=== PATIENT | female | born 1950 | race Caucasian/White ===

== ENCOUNTER 2024-12-09 17:23 | Observation (INO) | payer OTHER, SELFPAY ==
[2024-12-09] VITALS (10 sets, daily range): BP systolic 134–162; BP diastolic 75–109
--- NOTE | 2024-12-09 13:54 | ED.GENMED ---
History of Present Illness
General
Chief Complaint: Back Pain
Time Seen by Provider: 12/09/24 13:46
History of Present Illness
History of Present Illness:
Patient is a 74-year-old woman presenting to the emergency department for worsening back pain. Patient states that a few years ago she had back surgery. In October of this past year she went to [place] and was found to have compression fracture.
She was admitted and ultimately discharged with a back brace. For the past 2 days the pain worsened. It is not midline but more towards her right flank. The pain does not radiate down her leg. It stays localized to the right lower back. No
urinary symptoms. No fevers chills. No numbness tingling. No weakness. She has been taking oxycodone without relief.
Phy Exam
Physical Exam
Physical Exam:
GENERAL: in no acute distress
HEENT: normocephalic, extraocular movements intact, moist oral mucosa
NECK: normal inspection
RESPIRATORY: no respiratory distress, clear to auscultation bilaterally
CARDIOVASCULAR: regular rate and rhythm
ABDOMEN/: soft, non-distended, non-tender to palpation, no rebound or guarding
Back: Right lower back tenderness to palpation, no midline tenderness
EXTREMITIES: non-tender, no edema/swelling
NEUROLOGIC: awake and alert, moves all extremities
SKIN: warm
Course
Orders/Labs/Results
Orders:
Orders
12/09/24 13:54
CT Abd/pelvis W Iv Cont Urgent
Comment:
Reason For Exam: r flank pain, known compression fx
Oxycodone/Acetaminophen [Percocet 5/325] 1 tablet PO NOW STA
12/09/24 14:02
Complete Blood Count/With Diff Urgent
Comprehensive Metabolic Panel Urgent
12/09/24 15:33
Urinalysis Reflex To Culture Urgent
Date Specimen was Collected: 12/09/24
Time Specimen was Collected: 15:05
Urine Microscopic Reflex Cult Urgent
Urine Culture Urgent
FANY Source: U
Specimen Description:
Date Specimen was Collected: 12/09/24
Time Specimen was Collected: 15:05
Abnormal Lab Results
12/09/24 12/09/24
14:02 15:33
RBC 5.73 H 10^6/uL
(4.20-5.40)
MCV 70.2 L fL
(81.0-99.0)
MCH 21.3 L pg
(27.0-31.0)
MCHC 30.3 L g/dL
(33.0-37.0)
RDW 21.2 H %
(11.5-14.5)
Lymphocytes % 20.0 L %
(20.5-51.1)
Potassium 5.2 H mmol/L
(3.5-5.1)
Carbon Dioxide 34 H mmol/L
(22-30)
Creatinine 0.5 L mg/dL
(0.6-1.0)
Glucose 111 H mg/dl
(70-99)
Leukocyte Esterase Rfl 3+ A
(Negative)
Urine WBC (Reflex) 70-80 A /HPF
(0-5)
Urine Bacteria (Reflex) Many A
(Negative)
12/09/24 14:02
12/09/24 14:02
Vital Signs
Initial and Last Documented VS:
Initial Vital Signs
Temp Pulse Resp BP Pulse Ox
98.1 F 100 16 134/75 97
12/09/24 13:38 12/09/24 13:38 12/09/24 13:38 12/09/24 13:38 12/09/24 13:38
Last Documented Vital Signs
Temp Pulse Resp BP Pulse Ox
98.1 F 96 18 138/76 91
12/09/24 13:38 12/09/24 14:45 12/09/24 14:45 12/09/24 16:00 12/09/24 16:26
MDM/Problems Addressed
Differential Diagnosis Includes:
patient is a 74-year-old woman presenting to the emergency department with worsening of her back pain. On arrival vitals unremarkable exam does show reproducible tenderness. .. Patient without any red flags such as acute intervention, fevers
chills, saddle anesthesia or weakness. Given the flank tenderness could be urine or kidney stone. Will check blood work urine and CT scan with contrast. WIll pain control.
*Critical Care Note
Total Time (30-74mins, 75-104mins- exclusive of procedures): Not Applicable
Update Note
Update Note:
CT T scan with T12 and L5 compression as well as mild L2 compression. Given that there is no prior to compare to I discussed with [facility] neurosurgery who do recall admitting her. He did look at her CT scan and stated the only new compression
fracture is a mild L2 one. I offered patient transfer to [facility] as her care is there however patient preferred to transfer her care to [place]. Given patient with significant pain especially with movement will admit for further pain control
PT OT. Discussed with hospitalist who excepted patient to their service
ED Attending Note
-
Portions of this chart may have been created with voice recognition software.� Occasional wrong word or��sound alike� substitutions may have occurred due to the inherent limitations of voice recognition software.
Discharge Plan
Departure
Patient Disposition: Admit
Date of Disposition: 12/09/24
Time of Disposition: 16:39
Presentation/result/management discussed w/ accepting MD/DO: Hospitalist
Discharge Problem:
Compression fracture
Referrals:
Presley Matamoros CRNP [Family Provider] -
Interventions
Interventions:
*Risk Screen - Suicide Last Done: 12/09/24 13:41
*General Assessment Last Done: 12/09/24 13:41
*Neglect/Abuse Screening Last Done: 12/09/24 13:41
*ED- Fall Risk Assessment Last Done: 12/09/24 13:41
*ED COVID-19 Vaccine History Last Done: 12/09/24 13:41
ED-Musculoskeletal Assessment Last Done: 12/09/24 13:41
Discharge Date and Time
Print Language: GREEK
[2024-12-09] MEDS: PERCOCET 5/325 1 TABLET PO (14:05)
[2024-12-09 14:10] LABS: % Basophils 0.7 % (0-2); % Eosinophils 1.2 % (0-6); % Immature Granulocytes 0.1 % (0-0.5); % Monocytes 7.7 % (1.7-9.3); % Neutrophils 70.3 % (42.2-75.2); Absolute Basophils 0.1 10^3/uL (0-0.2); Absolute Eosinophils 0.1 10^3/uL (0-0.7); Absolute Lymphocytes 1.4 10^3/uL (1.2-3.4); Absolute Monocytes 0.5 10^3/uL (0.1-0.6); Absolute Neutrophils 4.9 10^3/uL (1.4-6.5); Hematocrit 40.2 % (37.0-47.0); Hemoglobin 12.2 g/dL (12.0-16.0); Mean Corp Hgb Conc. 30.3 g/dL (33.0-37.0); Mean Corpuscular Hgb 21.3 pg (27.0-31.0); Mean Corpuscular Volume 70.2 fL (81.0-99.0); Mean Platelet Volume 9.9 fL (7.4-10.4); Nucleated Red Blood Cells % 0 %; Platelet Count 388 10^3/uL (130-400); Red Blood Cell Count 5.73 10^6/uL (4.20-5.40); Red Cell Dist. Width 21.2 % (11.5-14.5); White Blood Cell Count 6.9 10^3/uL (4.8-10.8)
[2024-12-09 14:23] LABS: ALT (SGPT) 14 U/L (0-35); AST (SGOT) 24 U/L (14-36); Albumin 4.3 g/dl (3.5-5.0); Alkaline Phosphatase 119 U/L (38-126); Blood Urea Nitrogen 12 mg/dl (7-17); Calcium 9.7 mg/dl (8.4-10.2); Carbon Dioxide 34 mmol/L (22-30); Chloride 102 mmol/L (98-107); Glucose 111 mg/dl (70-99); Potassium 5.2 mmol/L (3.5-5.1); Sodium 137 mmol/L (135-145); Total Bilirubin 0.6 mg/dl (0.2-1.3); Total Protein 7.4 g/dl (6.3-8.2); eGFR > 60.00
[2024-12-09 15:45] LABS: Urine Albumin Negative (Neg - Trace); Urine Bilirubin Negative (Negative); Urine Character Clear (Clear); Urine Color Yellow; Urine Glucose Negative (Negative); Urine Ketone Negative (Negative); Urine Leukocyte 3+ (Negative); Urine Nitrite Negative (Negative); Urine Occult Blood Negative (Negative); Urine Specific Gravity 1.005 (<1.030); Urine Urobilinogen Negative (Neg - 1+)
[2024-12-09 16:11] LABS: Urine Bacteria Many (Negative); Urine Red Blood Cell 0-2 /HPF (0-2); Urine Squamous Cell >30 /LPF (Few)
[2024-12-09 16:12] LABS: Urine White Cell 70-80 /HPF (0-5)
--- NOTE | 2024-12-09 16:52 | HPS.HSE ---
Addendum entered and electronically signed by Nick Mckay MD 12/10/24 08:02:
Allergies
Allergy/AdvReac Type Severity Reaction Status Date / Time
No Known Allergies Allergy Unverified 12/09/24 13:41
Original Note:
Family Physician
-
Family Physician: MELISSA Grace
Chief Complaint
-
back pain
History of Present Illness
74-year-old female past medical history of extensive back pain and surgical history is presenting from home with back pain. Patient states back pain which is on the right lower region. She states it is a sharp pain. Was taking Percocet 5 mg at
home which was not alleviating the pain. States usually in the past Percocet used to help completely take the pain away in addition to Advil. However in the last 2 days the pain was unbearable and decided come to the hospital. Denies any urinary
fecal incontinence. States some mild radiation to pain with activity. States of lumbar fusion surgery and compression fracture T12 and L5 in the past. No recent trauma or falls. States she is stationary due to work. Continues to smoke lipid
less than 1 pack a day for the past 40 to 50 years. Occasional alcohol intake. Denies any fevers or chills. Denies any nausea or vomiting. Denies any chest pain or shortness of breath. States some mild left lower extremity edema due to ankle
fracture and surgery.
Medical History
Past Medical History
Past Medical History: Reports Other
Additional Past Medical History:
T12 and L5 compression fracture
Tobacco abuse daily basis
Past Surgical History: Reports Other
Additional Past Surgical History:
Left hip replacement
Lumbar fusion
Left ankle fracture s/p surgery
Social History
Tobacco: Smoker (daily basis 40-50 years)
Alcohol: Occasional
Employment: Employed
Family History
Family History: Not pertinent
Allergies / Home Medications
Allergies reflects when Allergies were last updated in [employer].
Home Medications with original date entered in [employer]
Allergy/Medication List:
Medications on admission are unable to be verified or confirmed at this time.
Review of Systems
-
History Source: Patient
Constitutional: Reports No Symptoms
EENT: Reports No Symptoms
Respiratory: Reports No Symptoms
Cardiac: Reports No Symptoms
Abdomen/GI: Reports No Symptoms
: Denies Dysuria, Frequency, Incontinence, Difficulty Voiding or Urgency
Musculoskeletal: Reports See HPI
Skin: Reports No Symptoms
Neurological: Reports No Symptoms
Psych: Reports Calm
Physical Exam
Vital Signs
Vital Signs
Temp Pulse Resp BP Pulse Ox
98.1 F 96 18 138/76 91
12/09/24 13:38 12/09/24 14:45 12/09/24 14:45 12/09/24 16:00 12/09/24 16:26
Physical Exam
General: Well Developed, Well Nourished, Conversant and Obese
HEENT: NormoCephalic, Moist mucous membranes and Atraumatic
Respiratory: Clear
Cardiac: S1/S2 and Regular Rhythm; No Murmur or Rub
Breast: Deferred by me
GI: Soft, Non Tender, Non Distended and Normal Bowel Sounds; No Organomegaly
Rectal: Deferred by Provider
Musculoskeletal: No Clubbing, No Cyanosis, Edema, Left Lower Extremity, Edema, Right Lower Extremity and Other (TTP R lower back )
Skin: No Rash
Neuro: Awake, Alert, Oriented, AO x 3, No Motor Deficits and Nonfocal/grossly intact
Psych: Calm
Laboratory Results
-
12/09/24 14:02
12/09/24 14:02
Laboratory Results
Total Bilirubin 0.6 mg/dl (0.2-1.3) 12/09/24 14:02
AST 24 U/L (14-36) 12/09/24 14:02
ALT 14 U/L (0-35) 12/09/24 14:02
Alkaline Phosphatase 119 U/L (38-126) 12/09/24 14:02
Data Reviewed
-
CT Scan: Report Reviewed by me and Discussed with Patient
Lab Data: Labs Reviewed by me and Discussed with Patient
Impression/Plan
-
#Acute on chronic back pain likely secondary to suspected acute/subacute L2 compression fracture and chronic T12 and L5 compression fracture
#History of lumbar fusion/kyphoplasty
Start patient on standing Tylenol. Tramadol, oxycodone and morphine for pain control
Physical therapy evaluation morning
Ambulation with assistance
CT abdomen pelvis was noted
#Constipation
Start patient on Senokot, MiraLAX
If no results. With Dulcolax and additional bowel regimen
#Mild hyperkalemia
Lokelma x 1
Tobacco abuse on a daily basis
Offered nicotine patch which patient refused counseled on cessation
Small to moderate hiatal hernia
Continue to monitor
DVT prophylaxis Lovenox
Full code
[2024-12-09] MEDS: LOKELMA 10 GRAM PO (21:28)
[2024-12-09] MEDS: MORPHINE SULFATE 2 MG IV (21:29)
[2024-12-10] MEDS: MIRALAX PO (00:02)
[2024-12-10] MEDS: SENOKOT 8.6 MG PO ×2 (00:02→08:04)
[2024-12-10] MEDS: COLACE 100 MG PO ×3 (00:02→20:27)
[2024-12-10] MEDS: TYLENOL 1000 MG PO ×4 (00:02→21:59)
[2024-12-10] MEDS: ROXICODONE 10 MG PO (05:17)
[2024-12-10 07:46] LABS: Blood Urea Nitrogen 9 mg/dl (7-17); Calcium 9.1 mg/dl (8.4-10.2); Carbon Dioxide 32 mmol/L (22-30); Chloride 102 mmol/L (98-107); Estimated Creatinine Clearance 100 ml/min; Glucose 102 mg/dl (70-99); Sodium 137 mmol/L (135-145); eGFR > 60.00
[2024-12-10 07:57] LABS: Vitamin D, 25-OH*** 24.6 ng/mL (30-80)
[2024-12-10 08:00] VITALS: BP 160/107
[2024-12-10] MEDS: MIRALAX 17 GRAMS PO (08:03)
--- NOTE | 2024-12-10 09:42 | CM ---
Addendum entered by Rosendo Bourne 12/10/24 15:46:
[employer] [facility] admissions green end department supervisor stated they do not have a contract with [facility] and they cannot accept the pt.
Pt is aware, expressed her disappointed feelings and understood that company might change the name.
Pt expressed her unhappy feelings regarding going to a SNF and she preferred to return back home with [facility]. Pt requested to talk to PT again and by tomorrow she will make a final decision.
PT is aware to meet with the pt and per PT, pt stated she will looking for friends who can help her at home.
Addendum entered by Rosendorobin Bourne 12/10/24 14:23:
PT and OT evaluations noted - SNF level of care recommended.
Pt is aware, expressed her agreement and pt requested [facility] ([facility]).
A referral to [facility] made. Awaiting for determination.
D/C plan: [facility].
eulalia Brice follow with discharge plan updates as hospitalization progresses
Addendum entered by Rosendo Bourne 12/10/24 10:52:
OBS status reviewed. MARTINEZ letter signed, placed on chart, pt has a copy
Original Note:
CM following re: discharge planning.
Reviewed pt's chart, met with pt.
Pt is a 74 year old female, admitted with primary dx of cute on chronic back pain likely secondary to suspected acute/subacute L2 compression fracture and chronic T12 and L5 compression fracture.
Pt reports she lives alone in an apartment, 1st floor, 1 step to enter. Pt reports she has no family, has supportive friends and neighbors. Pt reports she ambulates with a walker at baseline, was at [facility] in the past, liked there very
much and per pt if she needs SNF level of care she will prefer [facility] (new name now [facility]). Pt reports she had [facility] and [facility] in the past and she will prefer [facility] if recommended.
PT and OT will evaluate the pt to determine a level of care at discharge.
PCP: Presley Matamoros
Pharmacy: [facility].
D/C plan: will depend on PT/OT evaluations and recommendations: Preferred [facility]F vs home with [facility].
CM will follow with discharge plan updates as hospitalization progresses
[2024-12-10] MEDS: DRISDOL (VITAMIN D2) 50000 UNITS PO (10:17)
[2024-12-10 11:13] VITALS: BP 141/84; PULSE 96; O2SAT 92
--- NOTE | 2024-12-10 11:28 | W.PN.HOSP.TC ---
Today's Communication/Plan
-
pain management
bowel regimen
rehab eval
Assessment / Plan
Assessment / Plan
General: Well Developed, Well Nourished, Conversant and Obese
HEENT: NormoCephalic, Moist mucous membranes and Atraumatic
Respiratory: Clear
Cardiac: S1/S2 and Regular Rhythm; No Murmur or Rub
Breast: Deferred by me
GI: Soft, Non Tender, Non Distended and Normal Bowel Sounds; No Organomegaly
Rectal: Deferred by Provider
Musculoskeletal: No Clubbing, No Cyanosis, Edema, Left Lower Extremity, Edema, Right Lower Extremity and Other (TTP R lower back )
Skin: No Rash
Neuro: Awake, Alert, Oriented, AO x 3, No Motor Deficits and Nonfocal/grossly intact
Psych: Calm
#Acute on chronic back pain likely secondary to suspected acute/subacute L2 compression fracture and chronic T12 and L5 compression fracture
#History of lumbar fusion/kyphoplasty
Start patient on standing Tylenol. Tramadol, oxycodone and morphine for pain control
Physical therapy and OT
Ambulation with assistance
CT abdomen pelvis was noted
Okay to continue w/back brace
#Constipation
Start patient on Senokot, MiraLAX
If no results. With Dulcolax and additional bowel regimen
#Mild hyperkalemia
resolved
#Vit D deficency
Start high dose po vit D supplements
recommended OP dexa scan in setting of multiple recent lumbar spine fracture
Tobacco abuse on a daily basis
Offered nicotine patch which patient refused counseled on cessation
Small to moderate hiatal hernia
Continue to monitor
DVT prophylaxis Lovenox
Full code
Anticipated Discharge: Within 24 hours
Subjective/Interval History
-
Date of Service: December 10, 2024
states of back pain upon getting up from bed
Objective Data
-
Labs:
Laboratory Results
12/10/24
06:15
Sodium 137
Potassium 4.0
Chloride 102
Carbon Dioxide 32 H
BUN 9
Creatinine 0.5 L
Glucose 102 H
Calcium 9.1
Vital Signs:
Vital Signs
Temp Pulse Resp BP Pulse Ox
98.2 F 98 18 160/107 90
12/10/24 08:00 12/10/24 08:00 12/10/24 08:00 12/10/24 08:00 12/10/24 08:00
I&O
12/09/24 12/10/24 12/11/24
06:59 06:59 06:59
Intake Total 240 / 240
Balance 240 / 240
[2024-12-10] MEDS: ROXICODONE 15 MG PO ×2 (12:29→23:30)
[2024-12-10 15:15] VITALS: BP 122/76
[2024-12-10] MEDS: LOVENOX 40 MG SC (17:46)
[2024-12-10] MEDS: ULTRAM 50 MG PO (20:27)
[2024-12-10] MEDS: SENOKOT PO (20:28)
[2024-12-10 23:00] VITALS: BP 133/80
[2024-12-11] MEDS: ROXICODONE 15 MG PO (05:19)
[2024-12-11 07:45] VITALS: BP 156/87
[2024-12-11] MEDS: COLACE 100 MG PO ×2 (09:26→20:38)
[2024-12-11] MEDS: MIRALAX PO (09:26)
[2024-12-11] MEDS: SENOKOT 8.6 MG PO ×2 (09:26→20:38)
[2024-12-11] MEDS: TYLENOL 1000 MG PO ×2 (09:26→15:52)
[2024-12-11] MEDS: MOTRIN 400 MG PO ×2 (09:28→21:27)
[2024-12-11] MEDS: ZOFRAN 4 MG PO (09:53)
--- NOTE | 2024-12-11 11:41 | W.PN.HOSP.TC ---
Today's Communication/Plan
-
pain control
oob w/precautions
Assessment / Plan
Assessment / Plan
General: Well Developed, Well Nourished, Conversant and Obese
HEENT: NormoCephalic, Moist mucous membranes and Atraumatic
Respiratory: Clear
Cardiac: S1/S2 and Regular Rhythm; No Murmur or Rub
Breast: Deferred by me
GI: Soft, Non Tender, Non Distended and Normal Bowel Sounds; No Organomegaly
Rectal: Deferred by Provider
Musculoskeletal: No Clubbing, No Cyanosis, Edema, Left Lower Extremity, Edema, Right Lower Extremity and Other (TTP R lower back )
Skin: No Rash
Neuro: Awake, Alert, Oriented, AO x 3, No Motor Deficits and Nonfocal/grossly intact
Psych: Calm
#Acute on chronic back pain likely secondary to suspected acute/subacute L2 compression fracture and chronic T12 and L5 compression fracture
#History of lumbar fusion/kyphoplasty
Start patient on standing Tylenol. oxycodone and morphine for breakthrough pain control
Physical therapy and OT recs SNF-Refusing it. wants to go home VNA
Ambulation with assistance
CT abdomen pelvis was noted
Okay to continue w/back brace
#Constipation
Start patient on Senokot, MiraLAX
If no results. With Dulcolax and additional bowel regimen
having bm
#Mild hyperkalemia
resolved
#Vit D deficiency
Start high dose po vit D supplements
recommended OP dexa scan in setting of multiple recent lumbar spine fracture
Tobacco abuse on a daily basis
Offered nicotine patch which patient refused counseled on cessation
Small to moderate hiatal hernia
Continue to monitor
DVT prophylaxis Lovenox
Full code
PT/OT
Anticipated Discharge: Within 24 hours
Subjective/Interval History
-
Date of Service: December 11, 2024
states of improvement in back pain
mildly nauseous earlier today
tolerating diet
Objective Data
-
Vital Signs:
Vital Signs
Temp Pulse Resp BP Pulse Ox
98.8 F 90 16 156/87 92
12/11/24 07:45 12/11/24 07:45 12/11/24 07:45 12/11/24 07:45 12/11/24 07:45
I&O
12/10/24 12/11/24 12/12/24
06:59 06:59 06:59
Intake Total 240 / 240 1819 / 1819
Balance 240 / 240 1819
--- NOTE | 2024-12-11 12:01 | CM ---
CM following re: discharge planning.
Reviewed pt's chart, met with pt.
Pt reports she made a final decision regarding discharge plan - home with [facility]. Pt stated her friend will help her at home. Pt reports she had [facility] and [facility] in the past and she preferred [facility].
A referral to [facility] made. CM will make a referral to [facility] when [facility] confirmed that pt is accepted for services.
Pt is requested w/c van transportation and pt is aware of fees.
Please fax discharge instructions to [facility] at [phone]
D/C plan: home with [facility] and friend support. Transportation: w/c van.
CM will follow to assist pt with discharge home with [facility] and friend support.
[2024-12-11 12:53] VITALS: BP 132/77; PULSE 105; O2SAT 89
[2024-12-11 14:25] VITALS: BP 118/71; BP 122/77; PULSE 101; PULSE 81; O2SAT 88
[2024-12-11 15:40] VITALS: BP 125/58
[2024-12-11] MEDS: LOVENOX 40 MG SC (17:55)
[2024-12-11] MEDS: PEPCID 20 MG PO (21:24)
[2024-12-11] MEDS: TYLENOL PO ×2 (21:24→21:26)
[2024-12-11 23:00] VITALS: BP 106/67
[2024-12-12] MEDS: MOTRIN 400 MG PO (07:10)
[2024-12-12] MEDS: SENOKOT 8.6 MG PO (07:10)
[2024-12-12] MEDS: COLACE 100 MG PO (07:11)
[2024-12-12] MEDS: TYLENOL PO (07:11)
[2024-12-12] MEDS: MIRALAX PO (07:12)
[2024-12-12 07:25] VITALS: BP 129/76
[2024-12-12] MEDS: ZOFRAN 4 MG IV (08:54)
[2024-12-12] MEDS: FLUSH (NSS) 1 FLUSH IV (08:55)
[2024-12-12] MEDS: STERILE WATER FOR INJECTION 10 ML IV (08:57)
[2024-12-12] MEDS: ROCEPHIN 1000 MG IV (08:57)
[2024-12-12] MEDS: ROXICODONE 10 MG PO (09:07)
[2024-12-12 10:12] VITALS: BP 125/69; BP 132/79; PULSE 108; PULSE 92; O2SAT 92
--- NOTE | 2024-12-12 10:38 | CM ---
Addendum entered by Rosendo Bourne 12/12/24 12:57:
Per Acute care cryogenic transport driver, pt is Fall risk and needs to get home on stretcher. Pt is aware, expressed her agreement and pt stated she has keys from her apartment.
PMNC completed and left with .
Per cryogenic transport driver, ambulance transport BLS scheduled for 13:30.
Original Note:
CM following re: discharge planning.
Reviewed pt's chart, met with pt.
According to MD pt is medically stable to be discharged today. Pt is aware, expressed her agreement and she stated her friend will help her at home as needed.
[facility] accepted the pt for [facility] services and [facility] confirmed that pt is approved for services with [facility].
Pt is requested w/c van transportation and pt is aware of fees.
[facility] to arrange w/c van. Transportation form left with .
Please fax discharge instructions to [facility] at [phone]
D/C plan: home with [facility] and friend support. Transportation: w/c van.
--- NOTE | 2024-12-12 10:49 | W.PN.HOSP.TC ---
Today's Communication/Plan
-
refusing snf-home vn
po abx on dc
pain control
Assessment / Plan
Assessment / Plan
General: Well Developed, Well Nourished, Conversant and Obese
HEENT: NormoCephalic, Moist mucous membranes and Atraumatic
Respiratory: Clear
Cardiac: S1/S2 and Regular Rhythm; No Murmur or Rub
Breast: Deferred by me
GI: Soft, Non Tender, Non Distended and Normal Bowel Sounds; No Organomegaly
Rectal: Deferred by Provider
Musculoskeletal: No Clubbing, No Cyanosis, Edema, Left Lower Extremity, Edema, Right Lower Extremity
Neuro: Awake, Alert, Oriented, AO x 3, No Motor Deficits and Nonfocal/grossly intact
Psych: Calm
#Acute on chronic back pain likely secondary to suspected acute/subacute L2 compression fracture and chronic T12 and L5 compression fracture
#History of lumbar fusion/kyphoplasty
Start patient on standing Tylenol. oxycodone and morphine for breakthrough pain control
Physical therapy and OT recs SNF-Refusing it. wants to go home VNA
Ambulation with assistance
CT abdomen pelvis was noted
Okay to continue w/back brace
OP f/u with her primary spine surgeon
#E.coli UTI
Rocephin while and po on dc.
#Constipation
Start patient on Senokot, MiraLAX
If no results. With Dulcolax and additional bowel regimen
having bm
#Mild hyperkalemia
resolved
#Vit D deficiency
Start high dose po vit D supplements
recommended OP dexa scan in setting of multiple recent lumbar spine fracture
Tobacco abuse on a daily basis
Offered nicotine patch which patient refused counseled on cessation
Small to moderate hiatal hernia
Continue to monitor
DVT prophylaxis Lovenox
Full code
More than 30 minutes spent in discharge including
Final examination of the patient
Summarizing hospital stay
Instructions for continuing care to all relevant caregivers
Preparation of discharge records, prescriptions, and referral forms
Total time spent (in minutes): 52
Anticipated Discharge: Today
Subjective/Interval History
-
Date of Service: December 12, 2024
pain alleviated with oxy
no pain at rest
Objective Data
-
Vital Signs:
Vital Signs
Temp Pulse Resp BP Pulse Ox
97.7 F 104 18 129/76 93
12/12/24 07:25 12/12/24 07:25 12/12/24 07:25 12/12/24 07:25 12/12/24 09:00
I&O
12/11/24 12/12/24 12/13/24
06:59 06:59 06:59
Intake Total 1820 / 1820 120 / 120 120 / 120
Balance 1820 / 1820 120 / 120 120 / 120
--- NOTE | 2024-12-12 11:03 | W.DCSUMMARY ---
Discharge Summary
Discharge Data
Date of Admission: 12/09/24
Date of Discharge: 12/12/24
-
Pending Results: No
Hospital Course
74-year-old female past medical history of tobacco abuse on daily basis, moderate hiatal hernia, history of lumbar fusion kyphoplasty is presenting with severe back pain. Patient was CT abdomen pelvis and showed that patient had acute/subacute L2
compression fracture and chronic T12 and L5 compression fracture. Patient was started on pain medication. Patient pain was controlled with oxycodone. Patient was having bowel movements with laxatives. Patient was eval by physical and
Occupational Therapy with plan for SNF initially which patient refused. Patient was reeval by physical therapy with plan for home visiting nurses. Patient was a E. coli urinary tract infection received ceftriaxone with transition to p.o. cefdinir
on discharge. Also recommended follow-up with PCP for DEXA scan and also with her primary spine surgeon.
Discharge Plan
-
Patient Disposition: Home with Home Care
Discharge Diagnosis/Procedures: Acute on chronic back pain likely secondary to suspected acute/subacute L2 compression fracture and chronic T12 and L5 compression fracture
History of lumbar fusion/kyphoplasty
E.coli UTI
Condition: Fair
Diet: As tolerated
Activity: As tolerated
Driving Restrictions: Avoid driving while on opiates
Others Tests: recommended OP dexa scan in setting of multiple recent lumbar spine fracture
Other Services: VN
Activity Restrictions/Additional Instructions:
Follow-up with your primary spine surgeon.
Referrals:
Presley Matamoros CRNP [Family Provider] - in less than 1 week
Prescriptions:
New
acetaminophen [Tylenol Extra Strength] 500 mg Tablet
1,000 mg PO TID Qty: 30 0RF
famotidine 20 mg Tablet
20 mg PO DAILY Qty: 14 0RF
cefdinir 300 mg capsule
300 mg PO Q12H Qty: 4 0RF
Rx Instructions:
Start 12/13/24
oxycodone 10 mg tablet
10 mg PO TID PRN (Reason: severe pain) Qty: 15 0RF
Continued
cholecalciferol (vitamin D3) [Vitamin D3] 25 mcg (1,000 unit) Capsule
1,000 unit PO DAILY
oxycodone 5 mg Tablet
5 mg PO Q8H PRN (Reason: mod pain) Qty: 0 0RF
Discharge Orders:
Discharge Patient (As Directed); Ordered 12/12/24
Ordered By: Nick Mckay
Discharge Date and Time
Print Language: FRISIAN
[2024-12-12] MEDS: PREVNAR 20 0.5 ML IM (12:49)
[2024-12-12 13:00] VITALS: BP 129/76
== END 2024-12-12 13:40 | disposition home health service (06) ==
LOC: 2 SOUTH 17:23
PROVIDERS: ADMITTING PHYSICIAN Hospitalist; EMERGENCY PHYSICIAN Student in an Organized Health Care Education/Training Program; FAMILY PHYSICIAN Nurse Practitioner
DX: M48.54XA Collapsed vertebra, not elsewhere classified, thoracic region, initial encounter for fracture (principal); M48.56XA Collapsed vertebra, not elsewhere classified, lumbar region, initial encounter for fracture; M54.9 Dorsalgia, unspecified; N39.0 Urinary tract infection, site not specified; B96.20 Unspecified Escherichia coli [E. coli] as the cause of diseases classified elsewhere; R60.0 Localized edema; K59.00 Constipation, unspecified; E87.5 Hyperkalemia; E66.9 Obesity, unspecified; K44.9 Diaphragmatic hernia without obstruction or gangrene; F17.210 Nicotine dependence, cigarettes, uncomplicated; E55.9 Vitamin D deficiency, unspecified; R11.0 Nausea; G89.29 Other chronic pain; Z96.642 Presence of left artificial hip joint; Z98.1 Arthrodesis status; Z68.34 Body mass index [BMI] 34.0-34.9, adult; Z23 Encounter for immunization
CPT/HCPCS: 74177; 80048; 80053; 81003; 81015; 82306; 85025; 87077; 87086; 87186; 90677; 97116; 97163; 97166; 97530; 97535; 99284; G0009; Q9967

== ENCOUNTER → 2025-06-06 09:00 | Outpatient (REF) | payer OTHER, SELFPAY ==
[2025-06-06 11:42] LABS: Hematocrit 40.2 % (37.0-47.0); Hemoglobin 11.6 g/dL (12.0-16.0); Mean Corp Hgb Conc. 28.9 g/dL (33.0-37.0); Mean Corpuscular Volume 85.9 fL (81.0-99.0); Platelet Count 417 10^3/uL (130-400); Red Cell Dist. Width 16.5 % (11.5-14.5)
[2025-06-06 12:03] LABS: ALT (SGPT) < 10 U/L (0-35); AST (SGOT) 15 U/L (14-36); Albumin 3.7 g/dl (3.5-5.0); Alkaline Phosphatase 92 U/L (38-126); Blood Urea Nitrogen 11 mg/dl (7-17); Calcium 8.6 mg/dl (8.4-10.2); Chloride 94 mmol/L (98-107); Glucose 98 mg/dl (70-99); Potassium 4.9 mmol/L (3.5-5.1); Sodium 136 mmol/L (135-145); Total Protein 7.3 g/dl (6.3-8.2); eGFR > 60.00
[2025-06-06 13:35] LABS: Carbon Dioxide 37 mmol/L (22-30)
== END ==
LOC: OLABN 09:00
PROVIDERS: ATTENDING PHYSICIAN Student in an Organized Health Care Education/Training Program
DX: J96.12 Chronic respiratory failure with hypercapnia (principal); J44.9 Chronic obstructive pulmonary disease, unspecified
CPT/HCPCS: 36415; 80053; 85027